=== PATIENT | female | born 1975 | race Caucasian/White ===

== ENCOUNTER 2017-11-11 18:55 | Emergency (ER) | payer OTHER, SELFPAY ==
[2017-11-11 18:56] VITALS: BP 135/94; PULSE 98; RESP 16; TEMP 37; O2SAT 99; BMI 36.1
--- NOTE | 2017-11-11 23:27 | ED.VISSUMM ---
- ER Visit Summary Date of Service: 11/11/17 Chief Complaint: Laceration History of Present Illness: The patient is a 42 F who was at [employer] a couple hours prior to arrival she was lifting a bar that inadvertently hit her in the chin, causing her front maxillary incisors to cut into her lower lip. Last tetanus 7 years ago. Physical Examination: Well-appearing in no distress, GCS 15. Superficial 1.5 cm partial-thickness laceration across the center of the lower lip vermilion. It does not extend to the mucosal surface or the vermilion border, it is horizontal along the length of the lip. There is no dental injury. She is an abrasion below the vermilion border, but it is not part of a through and through laceration. It is clean and relatively linear, with a small irregular heart at the left aspect of it. There is no tissue loss seen. It is not into muscle. Test Results: n/a Emergency Department Course and Treatment: Laceration was repaired after local anesthesia with 3 cc 1% plain lidocaine. It was scrubbed with sterile saline, prepped with chlorhexidine, and repaired with a total of #3 interrupted 6-0 nylon sutures. Recommend outpatient removal in approximately 5 days. Treatment Plan: 5 day follow-up for suture removal Disposition: Discharge home Impression: Lower lip laceration and simple laceration repair This note was generated with [employer] dictation software. It may contain incorrect words, spelling, and punctuation that were not noted in review of the chart prior to signing ED Disposition - Plan for ED Patient: Disposition: Home or Assisted Living Chief Complaint: Laceration Instructions: ED Laceration Facial Sutr Tape Referrals: Juan Kwong III, MD [Primary Care Provider] - 5 Days for suture removal
[2017-11-11 23:34] VITALS: BP 130/60; PULSE 82; RESP 16; O2SAT 96
== END 2017-11-11 23:35 | disposition home or self-care (01) ==
PROVIDERS: Emergency Provider Emergency Medicine; Family Provider Family Medicine; PCP Family Medicine
DX: S01.511A Laceration without foreign body of lip, initial encounter (principal); W22.8XXA Striking against or struck by other objects, initial encounter; Y93.89 Activity, other specified; Y92.9 Unspecified place or not applicable; Y99.9 Unspecified external cause status; Z79.899 Other long term (current) drug therapy
CPT/HCPCS: 12011; 99283